=== PATIENT | female | born 1935 | race Caucasian/White ===

== ENCOUNTER 2018-11-29 21:28 | Emergency (ER) | payer MEDICARE, BC ==
[~2018-11-29] VITALS: Ht 157.5 cm; Wt 45.4 kg
[2018-11-29] MEDS ORDERED: FUROSEMIDE40 MG ORAL (21:40)
[2018-11-29] MEDS ORDERED: ZOLPIDEM TARTRAT5 MG ORAL (21:40)
[2018-11-29] MEDS ORDERED: SPIRONOLACTONE25 MG ORAL (21:40)
[2018-11-29] MEDS ORDERED: ENALAPRIL MALE2.5 MG ORAL (21:40)
[2018-11-29] MEDS ORDERED: CARVEDILOL3.125 MG ORAL (21:40)
[2018-11-29] MEDS ORDERED: Tylenol #3 tab (300mg/30mg) ORAL ONE (21:45)
--- NOTE | 2018-11-29 21:48 | Emergency Room Report ---
History of Present Illness General Chief Complaint: Multiple Trauma/Fall Source: Patient Present Illness HPI Is an 83-year-old female with history of blood pressure and atrial fibrillation but not on blood thinner. She presents with a mechanical fall with multiple injury. She was walking and tripped and hit her head. She did not pass out. She also landed on her left side. She complaining of a into the left shoulder and left thigh and knee area. Pain is 7 out of 10. Worse with movement. This occurred couple hours ago. Denies any focal deficit. Denies any nausea vomiting. Denies any active bleeding. Allergies: Coded Allergies: No Known Allergies (Unverified , 11/29/18) Patient History Past Medical History: see triage record, old chart reviewed, HTN, AFib Past Surgical History: other Pertinent Family History: none Social History: Denies: smoking Last Menstrual Period: n/a Now: No Immunizations: UTD Reviewed Nursing Documentation: PMH: Agreed; PSxH: Agreed Nursing Documentation-PMH Hx Cardiac Problems: Yes - valve replacement 2004, afib Review of Systems Eye: Denies: eye pain, blurred vision ENT: Denies: ear pain, nose congestion, throat swelling Respiratory: Denies: cough, shortness of breath Cardiovascular: Denies: chest pain, palpitations Gastrointestinal: Denies: abdominal pain, diarrhea, nausea, vomiting Musculoskeletal: Reports: joint pain; Denies: back pain Skin: Denies: rash Neurological: Denies: headache, numbness Endocrine: Denies: increased thirst, increased urine Hematologic/Lymphatic: Denies: easy bruising All Other Systems: negative except mentioned in HPI Physical Exam Vital Signs Date Time Temp Pulse Resp B/P (MAP) Pulse Ox O2 Delivery O2 Flow Rate FiO2 11/29/18 21:32 97.7 45 18 103/62 92 vitals with bradycardia Sp02 EP Interpretation: reviewed, normal General Appearance: well appearing, no apparent distress, alert Head: normocephalic, other - Abrasion and small hematoma to left lateral eyebrow area Eyes: bilateral eye PERRL, bilateral eye EOMI ENT: hearing grossly normal, normal pharynx Neck: full range of motion, supple, no meningismus Respiratory: chest non-tender, lungs clear, normal breath sounds Cardiovascular #1: regular rate, rhythm, no murmur Gastrointestinal: normal bowel sounds, non tender, no mass, no organomegaly, no bruit, non-distended Musculoskeletal: back normal, other - Left shoulder: Tenderness over the proximal humerus. mild deformity and ecchymosis. left thigh with hematoma. left knee with abrasion and ecchymosis. FROM. Psychiatric: mood/affect normal Skin: warm/dry Procedures Splinting Splinting : Consent: Verbal Location: Left shoulder Pre-Made Type: Sling Pre-Proc Neuro Vasc Exam: normal Post-Proc Neuro Vasc Exam: normal Patient Tolerated: Well Complications: None Medical Decision Making Diagnostic Impression: Primary Impression: Fall Qualified Codes: W19.XXXA - Unspecified fall, initial encounter Additional Impressions: Head injury, acute Qualified Codes: S09.90XA - Unspecified injury of head, initial encounter Sprain of left shoulder Qualified Codes: S43.402A - Unspecified sprain of left shoulder joint, initial encounter Contusion of leg, left, multiple sites Qualified Codes: S80.12XA - Contusion of left lower leg, initial encounter ER Course This patient present with a fall with multiple soft tissue injury. No obvious fracture. Her left shoulder is tender was sterilely. No evidence of any dislocation. She has full range of motion. May have rotator cuff injury or hairline fracture not seen. Open a sling. She able to walk. We'll discharge home. Other X-Ray Diagnostic Results Other X-Ray Diagnostic Results #1: X-Ray ordered: Left shoulder x-rays # of Views/Limited Vs Complete: 3 View Indication: Pain EP Interpretation: Yes Interpretation: no dislocation, no soft tissue swelling, no fractures Impression: No acute disease Electronically Signed by: Silvestre Nielsen MD Other X-Ray Diagnostic Results #2: X-Ray ordered: left Femur xrays # of Views/Limited Vs Complete: 4 View Indication: Pain EP Interpretation: Yes Interpretation: no dislocation, no soft tissue swelling, no fractures Impression: No acute disease Electronically Signed by: Silvestre Nielsen MD CT/MRI/US Diagnostic Results CT/MRI/US Diagnostic Results : Imaging Test Ordered: CT head Impression neg per radiologist. Last Vital Signs Date Time Temp Pulse Resp B/P (MAP) Pulse Ox O2 Delivery O2 Flow Rate FiO2 11/29/18 21:32 97.7 45 18 103/62 92 Status: improved Disposition: HOME, SELF-CARE Condition: Stable Scripts Acetaminophen With Codeine (T#3) (TYLENOL #3 TAB*) Y Tab 1 TAB ORAL Q8H PRN for For Pain, #20 TAB Prov: Silvestre Nielsen MD 11/29/18 Additional Instructions: Follow-up with your doctor in 7 days. May need repeat x-ray of left shoulder if continue with pain. May need an MRI. Return if symptom worsen. Silvestre Nielsen MD Nov 29, 2018 21:48
--- NOTE | 2018-11-29 21:50 | NUR ---
ED Nurse Note: RECIEVED PT FROM HOME S/P MECHANICAL FALL, PT IS AWAKE, ALERT AND ORIENTED X 4, PT NOTED WITH HEMATOMA TO LEFT FOREHEAD, BRUISING TO LEFT SHOULDER AND MILD DEFORMITH, LEFT THIGH LACERATION AND KNEE, AND SCRAPES ON ALL KNUCKLES ON RIGHT HAND, PT FALL WITNESSED BY SONS DENIES K.O, NO CP, SOB, OR ANY OTHER COMPLAINTS OR DISCOMFORTS, PT HAS PAIN AT 8/10, WILL RESUME CARE ORDERED, PT GOWNED FOR PHYSICIAN.
[2018-11-29] MEDS ORDERED: Bacitracin Oint UD TOPIC ONE (22:45)
[2018-11-29] MEDS ORDERED: ACETAMINOPHEN-1 EAC1 ORAL (22:47)
[2018-11-29 22:50] VITALS: BP 111/71
--- NOTE | 2018-11-29 22:53 | NUR ---
ER DISCHARGE NOTE: Patient is cleared to be discharged per ERMD, pt is aox4, on room air, with stable vital signs. pt was given dc and prescription instructions, pt was able to verbalize understanding, pt id band and iv site removed without complications. pt is able to ambulate with steady gait. pt took all belongings.Sling applied to left shoulder and all wounds cleaned and bacitracin applied by er-tech, pt with sons, nad noted during d/c to home.
[2018-11-29 23:12] VITALS: BP 111/71
--- NOTE | 2018-11-30 00:03 | NUR ---
ED Nurse Note: UNABLE TO DEPART PT AT RIGHT TIME DUE TO REGISTRATION NOT COMPLETED, PT WAS DONE AND COMPLETED AND DEPARTED AT 2305, CHARTED AT 2315.
--- NOTE | 2018-11-30 10:09 | Diagnostic Imaging Report ---
Indication: Pain, status post fall, trauma Technique: 3 views of the left shoulder Comparison: none Findings: Bones are osteoporotic. No definite acute fractures. No dislocations. The joint spaces are preserved. Impression: Osteoporotic changes. No definite acute bony trauma
--- NOTE | 2018-11-30 10:12 | Diagnostic Imaging Report ---
Indications: Trauma, pain, status post fall Technique: Two views of the left femur Comparison: None Findings: Bones are osteoporotic. No definite acute fractures. No dislocations. The joint spaces are preserved Impression: Negative
--- NOTE | 2018-11-30 16:03 | Diagnostic Imaging Report ---
Indication: Head pain, trauma, status post fall Technique: spiral acquisitions obtained through the brain. Angled axial and coronal 5 x 5 mm slices were reconstructed. No IV contrast utilized. Radiation dose was minimized using automated exposure control Total dose length product 1474.18 mGycm. CTDIvol(s) 70.38 mGy Comparison: none FINDINGS: No acute hemorrhage or edema. No mass effect or midline shift. There is age-related enlargement of the ventricles and extra axial CSF spaces. There is periventricular deep white matter ischemic change. Normal cheek-white differentiation. Visualized orbits are unremarkable. Visualized sinuses are unremarkable. Intact calvarium. IMPRESSION: Chronic and age-related changes. Negative for acute intracranial bleed or mass effect This agrees with the preliminary interpretation provided overnight by [facility] service. The CT scanner at [facility] is accredited by the [employer] and the scans are performed using protocols designed to limit radiation exposure to as low as reasonably achievable to attain images of sufficient resolution adequate for diagnostic evaluation
== END 2018-11-29 23:15 | disposition home or self-care (01) ==
LOC: EMR 23:15
DX: S43.402A Unspecified sprain of left shoulder joint, initial encounter (principal); S80.12XA Contusion of left lower leg, initial encounter; S09.90XA Unspecified injury of head, initial encounter; I48.91 Unspecified atrial fibrillation; I10 Essential (primary) hypertension; Z95.2 Presence of prosthetic heart valve; W01.0XXA Fall on same level from slipping, tripping and stumbling without subsequent striking against object, initial encounter; Y93.01 Activity, walking, marching and hiking; Y92.9 Unspecified place or not applicable
CPT/HCPCS: 70450; 99284